=== PATIENT | female | born 1955 | race Caucasian/White ===

== ENCOUNTER 2016-10-17 13:30 | Emergency (ER) | payer MEDICARE, OTHER ==
[2016-10-17 14:02] VITALS: BP 120/86
--- NOTE | 2016-10-17 14:42 | ED ---
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 PMH/Surg Hx/FS Hx/Imm Hx Endocrine/Hematology History: Denies: Hx Diabetes Cardiovascular History: Reports: Other Cardiovascular Problems/Disorders - tachycardia Denies: Hx Hypertension, Hx Pacemaker/ICD Respiratory History: Reports: Hx Asthma - VERY MILD WITH COLD SYMPTOMS, Hx Sleep Apnea - NO CPAP, Other Respiratory Problems/Disorders - ex-smoker GI History: Reports: Hx Gastroesophageal Reflux Disease, Other GI Disorders - H. Pylori, resolved after abx treatment History: Reports: Other Problems/Disorders - urethral stricture 2004 Denies: Hx Dialysis, Hx Renal Disease Musculoskeletal History: Reports: Hx Back Problems, Hx Orthopedic Injury - acl tear (left) knee, fx 3rd & 4th metacarpals, Other Musculoskeletal History - MS Denies: Hx Osteoporosis Sensory History: Reports: Hx Cataracts - LEFT, Hx Contacts or Glasses - READING Denies: Hx Hearing Aid Opthamlomology History: Reports: Hx Cataracts - LEFT, Hx Contacts or Glasses - READING Neurological History: Reports: Other Neuro Impairments/Disorders - MS, ADD Psychiatric History: Reports: Hx Anxiety, Hx Depression Denies: Hx Panic Disorder - Cancer History Hx Chemotherapy: No Hx Radiation Therapy: No - Surgical History Surgery Procedure, Year, and Place: C SECTION X2. ECTOPIC . RIGHT CATARACT 04/07 W/ LENS IMPLANT- ANDRZEJ TORIC -[id number] - PT WILL BE BRINGING CARD - @[facility]. LEFT MIDDLE FINGER SURGERY [facility]. LEFT 4TH AND 5TH TOE SURGERY [facility] Hx Anesthesia Reactions: No Infectious Disease History: Denies: Traveled Outside the [place] in Last 30 Days - Family History Known Family History: Positive: None - Social History Occupation: Retired Lives: With Family Alcohol Use: Rare Substance Use Type: Reports: None Smoking Status (MU): Former Smoker Amount Used/How Often: 1/2-1 PPD X 3-4 YEARS Review of Systems Negative: Photophobia, Blurred Vision Positive: Bruising, Other - 1 cm laceration to right forehead Negative: Headache, Weakness, Paresthesia, Numbness, Syncope, Slurred Speech All Other Systems Reviewed And Are Negative: Yes Physical Exam Triage Information Reviewed: Yes Vital Signs On Initial Exam: Initial Vitals Temp Pulse Resp BP Pulse Ox 97.0 F 58 16 120/86 100 10/17/16 13:59 10/17/16 13:59 10/17/16 13:59 10/17/16 13:59 10/17/16 13:59 Vital Signs Reviewed: Yes Appearance: Positive: Well-Appearing, Well-Nourished, Pain Distress Skin: Positive: Warm, Skin Color Reflects Adequate Perfusion, Dry, Tender - 1 cm laceration to right forehead, Soft Head/Face: Positive: Normal Head/Face Inspection Eyes: Positive: EOMI, KIMBERLY, Conjunctiva Clear ENT: Positive: Hearing grossly normal, Pharynx normal, TMs normal Neck: Positive: Supple, Nontender Respiratory/Lung Sounds: Positive: Breath Sounds Present Cardiovascular: Positive: RRR Musculoskeletal: Positive: Strength/ROM Intact. Negative: Edema Left, Edema Right Neurological: Positive: Sensory/Motor Intact, Alert, Oriented to Person Place, Time, CN Intact II-III, NV Bundle Intact Distally, Normal Gait Psychiatric: Positive: Affect/Mood Appropriate AVPU Assessment: Alert Procedures - Laceration/Wound Repair 1 Location: face Description: Linear Anesthesia: Local, 2.0%, Lido, Epi Length, Depth and Shape: 1 cm long, 4 mm wide, 3 mm deep Betadine Prep?: No Irrigated w/ Saline (ccs): 100 Laceration/Wound Explored: clean Closure: Single Layer Suture Type: Nylon - 6.0 Number of Sutures: 4 Layer Closure?: No Sterile Dressing Applied?: Yes Diagnostics - Vital Signs Vital Signs Temp Pulse Resp BP Pulse Ox 10/17/16 13:59 97.0 F 58 16 120/86 100 - Laboratory Lab Statement: Any lab studies that have been ordered have been reviewed, and results considered in the medical decision making process. - CT No standard instances CT Interpretation: No Acute Changes CT Interpretation Completed By: Radiologist Laceration Repair Course/Dx - Differential Dx Differental Diagnoses: Abrasion, Avulsion, Cellulitis, Dehiscence, Hematoma, Laceration, Puncture Wound - Clinical Impression Provider Diagnoses: Head injury, Laceration of forehead Discharge - Discharge Plan Condition: Stable Disposition: HOME Patient Education Materials: Facial Laceration (ED) Referrals: Netta Martell MD [Primary Care Provider] - Additional Instructions: Keep your dressing clean, dry and in place for the next 24 hours. You may then remove and shower. Pat dry and cover with a clean, dry band-aid if you are going to be in a "dirty" environment, otherwise it can remain open to air. Do not soak the wound in any body of water until the sutures are removed. Elevate your head above your heart and use Tylenol for pain the first 24 hours after injury. You may begin taking ibuprofen 24 hours after injury as needed. Follow- up with your primary care provider or return to the emergency department in 5 days for suture removal. Return to the emergency department sooner if your symptoms worsen.
--- NOTE | 2016-10-17 15:07 | RAD ---
Indication: Indentation on the RIGHT for head post fall. Multiple sclerosis. Comparison: August 17, 2015 MRI. September 16, 2003 CT. Technique: Noncontrast CT vertex of skull through foramen magnum. Report: Mild RIGHT preseptal orbital and superolateral orbital margin soft tissue swelling and few foci of subcutaneous emphysema. Unremarkable orbital contents. No calvarial or skull base fracture evident. The sulci, ventricles, and basal cisterns are normal for age. Decreased density in the periventricular and subcortical white matter most prominent at the LEFT frontal lobe corresponding with T2 hyperintensity without mass effect on the August 17, 2015 MRI. While non-specific the differential includes chronic microangiopathy and demyelinating disease given the clinical history. Goncalves matter white matter differentiation is preserved without evidence for edema. No intra or extra axial hemorrhage is detected. Negative for mass effect. The visualized paranasal sinuses and mastoid air spaces are clear. IMPRESSION: 1. Mild RIGHT preseptal orbital and superolateral orbital margin soft tissue swelling and few foci of subcutaneous emphysema. Unremarkable orbital contents. No calvarial or skull base fracture evident. 2. Decreased density in the periventricular and subcortical white matter most prominent at the LEFT frontal lobe corresponding with T2 hyperintensity without mass effect on the August 17, 2015 MRI. While non-specific the differential includes chronic microangiopathy and demyelinating disease given the clinical history.
== END 2016-10-17 15:47 | disposition home or self-care (01) ==
LOC: ED 13:30
DX: S01.81XA Laceration without foreign body of other part of head, initial encounter (principal); S09.90XA Unspecified injury of head, initial encounter; W19.XXXA Unspecified fall, initial encounter; Y93.9 Activity, unspecified; Y92.9 Unspecified place or not applicable; Y99.9 Unspecified external cause status
CPT/HCPCS: 12011; 70450; 99282